=== PATIENT | female | born 1995 | race Two or more races ===

== ENCOUNTER 2020-07-30 07:14 | Day surgery (SDC) | payer OTHER ==
[~2020-07-30 07:14] MED LIST: ADDERALL 10 MG10 MG PO; ALDACTONE100 MG PO; ENALAPRIL MALEAT5 MG PO; ZOLOFT50 MG PO
[2020-07-30] MEDS ORDERED: PERCOCET 5-3251 EACH PO (12:21)
[2020-07-30] MEDS ORDERED: COLACE100 MG PO (12:21)
== END 2020-07-30 22:25 | disposition home or self-care (01) ==
LOC: CIR.AMB 07:14
PROVIDERS: ATTEND Surgery
DX: K62.4 Stenosis of anus and rectum (principal); K60.1 Chronic anal fissure; Z20.828 Contact with and (suspected) exposure to other viral communicable diseases